=== PATIENT | male | born 1985 | race Caucasian/White ===

== ENCOUNTER 2020-09-23 00:48 | Emergency (ER) | payer MEDICARE, MEDICAID, SELFPAY ==
[2020-09-23 02:08] VITALS: BP 130/79; PULSE 79; RESP 16; TEMP 36.7; O2SAT 98; BMI 26.6
--- NOTE | 2020-09-23 02:24 | ED_ITS ---
HPI - Animal Bite General Chief Complaint: Animal Bite Stated Complaint: TICK BITE Time Seen by Provider: 09/23/20 02:22 Source: patient Mode of arrival: ambulatory Limitations: no limitations History of Present Illness HPI narrative: Patient comes to emergency room complaining of being exposed to a tick. 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 Patient pulled it out, states that he thinks he got the head out, threw it on the ground. Patient denies any fever chills, no s ymptoms, it has been approximately 6 hours since he pulled the tick out. MD complaint: other (Tick bite) Related Data Allergies Allergy/AdvReac Type Severity Reaction Status Date / Time vancomycin [Vancomycin] Allergy Mild FLUSHING, Unverified 02/25/20 16:50 RED FACE, anaphylaxis ibuprofen Allergy Unknown LIP Unverified 02/25/20 16:50 SWELLING Motrin Allergy Unknown Uncoded 03/15/17 00:00 Review of Systems Review of Systems: Constitutional : No Weight loss, No Fever, No Chills, No Night Sweats, No Fatigue, No Malaise ENT/Mouth : No Hearing loss, No Ear Pain, No Nasal Congestion, No Sinus Pain, No Hoarseness, No sore throat, No Rhinorrhea, No Swallowing Difficulty Eyes: No Eye Pain, No Swelling, No Redness, No Foreign Body, No Discharge, No Vision Changes Cardiovascular : No Chest Pain, No SOB, No Dyspnea on Exertion, No Orthopnea, No Edema, No Palpitations Respiratory : No Cough, No Sputum, No Wheezing, No Smoke Exposure, No Dyspnea Gastrointestinal : No Nausea, No Vomiting, No Diarrhea, No Constipation, No abdominal Pain, No Hematochezia, No Melena Genitourinary : no irregular bleeding, No Dysuria, No Urinary Frequency, No Hematuria, No Urinary Incontinence, No Urgency, No Flank Pain, No Urinary Flow Changes, No Hesitancy Musculoskeletal : No joint pain, No Myalgias, No Joint Swelling Skin : Found a tick in his abdomen right lower quadrant Neuro : No Weakness, No Numbness, No Paresthesias, No Loss of Consciousness, No Dizziness, complaining of a mild to moderate Headache at this time Psych : No Anxiety/Panic, No Depression, No SI/HI/AH/VH, No Social Issues, Heme/Lymph: No Bruising, No Bleeding,No Lymphadenopathy Endocrine : No Polyuria, No Polydipsia, No Temperature Intolerance Physical Exam Vital Signs: Vital Signs: Last Vital Signs Temp 98.0 F 09/23/20 02:08 Pulse 79 09/23/20 02:08 Resp 16 09/23/20 02:08 BP 130/79 09/23/20 02:08 Pulse Ox 98 09/23/20 02:08 Body Mass Index 26.6 Appearance: Alert. Oriented X3. No acute distress. Eyes: Pupils equal, round and reactive to light. ENT: Pharynx normal. Neck: Normal inspection. Neck supple. No lymph nodes noted. No crepitus CVS: Normal heart rate and rhythm. Pulses normal. Normal S1 and S2 Respiratory: No respiratory distress. Breath sounds normal. No Wheezing. No rales Abdomen: Soft and nontender. No rigidity. No distention. good BS x4 Skin: Skin warm and dry. 2 mm erythematous dot on the patient's right lower quadrant, no surrounding erythema Extremities: No lower extremity edema. No lower extremity edema. No Laceratio ns. No Rash Neuro: Oriented X 3. No motor deficit. No sensory deficit. Moving all extermities. No slurred speech. Course Course Course Narrative: I discussed with the patient that we will go ahead and give him 1 time dose of 200 mg of doxycycline. Patient instructed to monitor if he has any new symptoms in the next couple of weeks. If he does, patient is to follow-up with his primary care physician. Discharge Plan Discharge Clinical Impression: Tick bite of abdominal wall Patient Disposition: Home, Self-Care Instructions: Tick Bite (ED) Additional Instructions: Over the next 2 weeks, please monitor if you have any symptoms, if you do, please return to the emergency room or call your primary care physician. Please follow-up with your primary care physician tomorrow. If you have any worsening or new symptoms, please return to the emergency room or call 911
[2020-09-23] MEDS: Acetaminophen 325 MG TABLET 650 MG PO (02:37)
== END 2020-09-23 02:48 | disposition home or self-care (01) ==
LOC: HO.ED 02:47
PROVIDERS: Emergency Provider Emergency Medicine; PCP Family Medicine
DX: T63.481A Toxic effect of venom of other arthropod, accidental (unintentional), initial encounter (principal); R10.31 Right lower quadrant pain; Y92.9 Unspecified place or not applicable
CPT/HCPCS: 99283

== ENCOUNTER 2021-10-03 19:18 | Emergency (ER) | payer MEDICARE, MEDICAID, SELFPAY ==
[2021-10-03 19:38] VITALS: BP 122/72; PULSE 83; RESP 17; TEMP 36.4; O2SAT 98; BMI 28.8
[2021-10-03 21:44] VITALS: BP 111/64; PULSE 79; RESP 17; TEMP 36.4; O2SAT 97
[2021-10-03] MEDS: Amoxicillin/Potassium Clav 875 MG TABLET PO (21:46)
[2021-10-03] MEDS: Acetaminophen 325 MG TABLET 975 MG PO (21:46)
--- NOTE | 2021-10-03 21:56 | ED_ITS ---
HPI - General Adult General Chief complaint: Dental/Oral Stated complaint: dental pain Time Seen by Provider: 10/03/21 21:26 Source: patient Mode of arrival: ambulatory Limitations: no limitations History of Present Illness HPI narrative: Rochelle Zelaya presents to ED for left upper tooth pain. Patient states has cracked broken tooth and slight facial swelling. Patient scheduled for extraction of tooth next week. Patient denies any shortness of breath, sensation of throat closing trauma drooling, chest pain, shortness of breath, or neck swelling. Related Data Previous Rx's Medication Instructions Recorded amoxicillin 875 mg-potassium 1 tab PO Q12H 10 Days #20 tab 10/03/21 clavulanate 125 mg tablet Allergies Allergy/AdvReac Type Severity Reaction Status Date / Time vancomycin [Vancomycin] Allergy Mild FLUSHING, Verified 10/03/21 19:40 RED FACE, anaphylaxis ibuprofen Allergy Unknown LIP Verified 10/03/21 19:40 SWELLING Motrin Allergy Unknown Unknown Uncoded 10/03/21 19:40 Review of Systems Review of Systems: Left upper molar pain Yes all other systems are reviewed and are negative PMFSH Social History Social History Advance Directives: No Advance Directives Information Provided: Yes Physical Exam ED Vital Signs: Vital Signs - 24 hr 10/03/21 19:38 10/03/21 21:44 Temperature 97.6 F 97.5 F Pulse Rate 83 79 Respiratory Rate 17 17 Blood Pressure 122/72 111/64 Pulse Oximetry 98 97 BMI result Body Mass Index 28.8 Const General: cooperative, healthy appearing, comfortable, no acute distress, well developed, alert, awake and Physically active Orientation/consciousness: oriented to person, oriented to place, oriented to time and patient oriented x3 HENMT Other: Negative for facial swelling or mass on palpation of face. Head: Yes normal to inspection, Yes No palpable skull fracture present, Yes normocephalic, Yes atraumatic and No abrasion Teeth image: 1. Positive for yellow collection and tenderness on palpation. Negative for any gum swelling, redness, drooling, trismus, or gum abscess Eyes General: appearance normal, both eyes and all related structures Neck Neck: Yes normal visual inspection, Yes full ROM, Yes no lymphadenopathy, Yes no meningeal signs, Yes trachea midline, Yes supple, No anterior neck swelling and No tender Chest Chest palpation & inspection: normal inspection of the chest and normal palpation of entire chest wall Resp Effort & Inspection: normal respiratory effort and able to speak in complete sentences Auscultation: clear to auscultation bilaterally Cardio Jugular venous distension: no JVD Heart sounds: S1 normal heart sound present and S2 normal heart sound present GI Inspection: Yes normal to inspection and No abdominal wall ecchymosis Palpation (GI): Soft to palpation, not firm, nontender, no guarding and not rigid General: No CVA tenderness and Yes no CVA tenderness Back/Spine/Pelvis Back: no CVA tenderness, No CVA tenderness and No back tenderness Skin General skin exam: no rashes or lesions noted and elasticity normal Neuro General: oriented to person, oriented to place, oriented to time, patient oriented x3, gait normal, tone normal, moves all extremities, no meningeal signs, no focal motor deficits, CN's II-XI intact bilaterally and deep tendon reflexes 2+ bilaterally Extrem General: Yes normal to inspection and Yes full ROM Psych Appearance: grossly normal, well kempt and not disheveled Course Course Course Narrative: No imaging indicated. Negative for any neck swelling, drooling, change in voice, or facial swelling. Reevaluation(s) Reevaluation #1: Broken tooth with slight yellow collection. Will need antibiotics Time: 22:08 Medical Decision Making MDM Narrative Medical decision making narrative: Toothache. Dental infection Discharge Plan Discharge Clinical Impression: Toothache Patient Disposition: Home, Self-Care Instructions: Toothache (ED) Additional Instructions: You will need antibiotics to treat infection. Please follow-up with a dentist for teeth extraction after antibiotic course is done. Return To the ED immediately for facial swelling, neck swelling, drooling, shortness of breath, chest pain, change in voice, or any other concerning symptoms. Prescriptions: New amoxicillin-pot clavulanate 875-125 mg tablet 1 tab PO Q12H 10 Days Qty: 20 0RF Stand Alone Forms: Work/School Release Interventions: ED Discharge Assessment Last Done: 10/03/21 22:40 Discharge Date/Time: 10/03/21 22:40 Print Language: Lithuanian
== END 2021-10-03 22:40 | disposition home or self-care (01) ==
PROVIDERS: Emergency Provider Internal Medicine; PCP Family Medicine
DX: K08.89 Other specified disorders of teeth and supporting structures (principal)
CPT/HCPCS: 99283; 99284

== ENCOUNTER 2022-03-29 00:25 | Emergency (ER) | payer MEDICARE, MEDICAID, SELFPAY ==
[2022-03-29 00:51] VITALS: BP 134/77; PULSE 98; RESP 20; TEMP 36.7; O2SAT 96; BMI 25.7
[2022-03-29 02:00] VITALS: BP 126/72; PULSE 83; TEMP 36.8; O2SAT 95
[2022-03-29] MEDS: Acetaminophen 325 MG TABLET 650 MG PO (02:32)
[2022-03-29] MEDS: Amoxicillin/Potassium Clav 875 MG TABLET PO (02:32)
--- NOTE | 2022-03-29 02:41 | ED.DENTAL ---
HPI - Dental/Oral General Chief complaint: Dental/Oral Stated complaint: Dental pain/broken tooth Time Seen by Provider: 03/29/22 02:16 Source: patient Mode of arrival: ambulatory Limitations: no limitations History of Present Illness HPI Narrative: Patient with history of dental caries chronic been to dentist has taken antibiotics has an appointment to see dentist in a week time complaining of pain and cold sensitivity in the right 2nd upper molar Related Data Previous Rx's Medication Instructions Recorded amoxicillin 875 mg-potassium 1 tab PO Q12H 10 days #20 tabs 10/03/21 clavulanate 125 mg tablet amoxicillin 875 mg-potassium 1 tab PO BID #20 tabs 03/29/22 clavulanate 125 mg tablet Allergies Allergy/AdvReac Type Severity Reaction Status Date / Time vancomycin [Vancomycin] Allergy Mild FLUSHING, Verified 10/03/21 19:40 RED FACE, anaphylaxis ibuprofen Allergy Unknown LIP Verified 10/03/21 19:40 SWELLING Motrin Allergy Unknown Unknown Uncoded 10/03/21 19:40 Review of Systems Review of Systems: Yes all other systems are reviewed and are negative [facility] Social History Social History Advance Directives: No Physical Exam Vital Signs: Vital Signs: Last Vital Signs Temp 98.3 F 03/29/22 02:00 Pulse 83 03/29/22 02:00 Resp 20 03/29/22 00:51 BP 126/72 03/29/22 02:00 Pulse Ox 95 03/29/22 02:00 O2 Del Method 03/29/22 02:00 BMI result Body Mass Index 25.7 Appearance: Alert. Oriented X3. No acute distress. ENT: Pharynx normal. Oral Mucosa moist Neck: Normal inspection. Neck supple. CVS: Normal heart rate and rhythm. Respiratory: No respiratory distress. Neuro: Oriented X 3. HEENT: Teeth image: 1. Dental caries, tender to touch no gum swelling Discharge Plan Discharge Clinical Impression: Dental caries Patient Disposition: Home, Self-Care Instructions: Toothache (ED) Additional Instructions: Tylenol for pain take antibiotics and follow-up with their dentist Prescriptions: New amoxicillin-pot clavulanate 875-125 mg tablet 1 tab PO BID Qty: 20 0RF No Action amoxicillin-pot clavulanate 875-125 mg tablet 1 tab PO Q12H 10 Days Qty: 20 0RF
== END 2022-03-29 02:47 | disposition home or self-care (01) ==
PROVIDERS: Emergency Provider Internal Medicine; PCP Family Medicine
DX: K02.9 Dental caries, unspecified (principal)
CPT/HCPCS: 99283

== ENCOUNTER 2022-09-19 00:24 | Emergency (ER) | payer MEDICARE, MEDICAID, SELFPAY ==
--- NOTE | 2022-09-19 | ECG_ITS ---
Test Reason : chest pain Blood Pressure : / mmHG Vent. Rate : 072 BPM Atrial Rate : 072 BPM P-R Int : 136 ms QRS Dur : 088 ms QT Int : 356 ms P-R-T Axes : 018 011 016 degrees QTc Int : 389 ms Normal sinus rhythm Normal ECG When compared with ECG of 01-OCT-2016 15:52, No significant change was found Referred By: Generic ED Physician Electronically Signed By:ABDI GUILLEN MD
[2022-09-19 00:31] VITALS: BP 90/60; PULSE 84; O2SAT 100
[2022-09-19 00:32] VITALS: BMI 26.6
[2022-09-19 00:34] VITALS: BP 114/60; PULSE 74; RESP 14; TEMP 36.6; O2SAT 99
[2022-09-19 00:52] LABS: MANUAL DIFF FLAG NO
[2022-09-19 00:53] LABS: Basophils Percent Auto 0.5 % (0-2); Eosinophils Absolute Auto 0.5 X10*3/uL (0.0-0.4); Eosinophils Percent Auto 6.2 % (0-4); Hematocrit 34.1 % (42.0-52.0); Hemoglobin 11.4 g/dl (14.0-18.0); Imm Gran Abs Auto 0.02 X10*3/uL (0.00-0.03); Imm Gran Pct Auto 0.3 % (0.0-0.4); Lymphocytes Absolute Auto 3.9 X10*3/uL (1.2-4.9); Lymphocytes Percent Auto 52.8 % (20-40); Mean Corpuscular HGB Conc 33.4 g/dl (31.0-36.0); Mean Corpuscular Hemoglobin 32.1 pg (27.0-33.0); Mean Corpuscular Volume 96.1 fL (80.0-98.0); Mean Platelet Volume 8.7 fL (9.4-12.4); Monocytes Absolute Auto 0.4 X10*3/uL (0.1-1.2); Monocytes Percent Auto 5.9 % (2-11); Neutrophils Absolute Auto 2.6 x10*3/uL (2.0-8.3); Neutrophils Percent Auto 34.3 % (45-73); Platelet Count 240 X10*3/uL (160-400); Red Blood Count 3.55 X10*6/uL (4.60-5.80); Red Cell Distribution Width 12.4 % (11.0-16.0); White Blood Count 7.4 X10*3/uL (4.8-10.8)
--- NOTE | 2022-09-19 00:57 | ED_ITS ---
HPI - Chest Pain General Chief Complaint: Chest Pain Stated Complaint: chest pain Time Seen by Provider: 09/19/22 00:56 Source: patient Mode of arrival: EMS Limitations: no limitations History of Present Illness HPI narrative: Patient history of cocaine use for long time today patient used cocaine within half an hour of cocaine use noticed pain in the left chest patient also does have history of anxiety and panic attack but does not feel like same at this time pain is sharp localized to left side continues for last 1 hour no diaphoresis no nausea no vomiting no shortness of breath no cough patient received 324 mg aspirin by EMS Related Data Previous Rx's Medication Instructions Recorded amoxicillin 875 mg-potassium 1 tab PO Q12H 10 days #20 tabs 10/03/21 clavulanate 125 mg tablet amoxicillin 875 mg-potassium 1 tab PO BID #20 tabs 03/29/22 clavulanate 125 mg tablet Allergies Allergy/AdvReac Type Severity Reaction Status Date / Time vancomycin [Vancomycin] Allergy Mild FLUSHING, Verified 10/03/21 19:40 RED FACE, anaphylaxis ibuprofen Allergy Unknown LIP Verified 10/03/21 19:40 SWELLING Motrin Allergy Unknown Unknown Uncoded 10/03/21 19:40 Review of Systems Review of Systems: Yes all other systems are reviewed and are negative PMFSH Social History Social History Smoked in Last 30 Days: No Use of substances other than those prescribed or required for medical reasons: Yes Substance Use Type: Crack/Cocaine and Marijuana Substance Use Frequency: Daily Last Used Substance: Just Prior to Admission Any prior treatment program specific to substance use: No Advance Directives: No Advance Directives Information Provided: Yes Physical Exam Vital Signs: Vital Signs: Last Vital Signs Temp 98.0 F 09/19/22 04:02 Pulse 77 09/19/22 04:02 Resp 13 09/19/22 04:02 BP 111/73 09/19/22 04:02 Pulse Ox 96 09/19/22 04:02 O2 Del Method Room Air 09/19/22 04:02 BMI result Body Mass Index 26.6 Appearance: Alert. Oriented X3. No acute distress. Anxious ENT: Pharynx normal. Oral Mucosa moist Neck: Normal inspection. Neck supple. CVS: Normal heart rate and rhythm. Pulses normal. Respiratory: No respiratory distress. Equal air entry bilateral, no wheezing/rales/rhonchi Abdomen: Soft and nontender. Bowel sounds are present, no mass palpable, no CVA tenderness Skin: Skin warm and dry. Normal skin color. Normal skin turgor. Extremities: No lower extremity edema. No calf tenderness Neuro: Oriented X 3. No motor deficit. No sensory deficit.No cerebellar signs , cranial nerves II-XII intact Medications Administered Discontinued Medications Generic Name Dose Route Start Last Admin Trade Name Freq PRN Reason Stop Dose Admin Sodium Chloride 1,000 mls @ 999 mls/hr 09/19/22 01:02 09/19/22 02:35 Ns IV 09/19/22 02:02 Infused .Q1H1M ONE Infusion Lorazepam 1 mg 09/19/22 01:02 09/19/22 01:16 Lorazepam 2 Mg/Ml Vial IVPUSH 09/19/22 01:03 1 mg ONCE ONE Administration Medical Decision Making Medical Decision Making [facility] Narrative: Patient heart score of 0 atypical chest pain with cocaine use no EKG changes high sensitive troponin negative discharge patient home patient is sleeping since arrival Lab Data [facility] Lab Attestation statement: I reviewed the patient's lab results. 09/19/22 00:42 09/19/22 00:42 Labs: Lab Results 09/19/22 09/19/22 09/19/22 Range/Units 00:42 00:42 03:59 WBC 7.4 (4.8-10.8) X10*3/uL RBC 3.55 L (4.60-5.80) X10*6/uL Hgb 11.4 L (14.0-18.0) g/dl Hct 34.1 L (42.0-52.0) % MCV 96.1 (80.0-98.0) fL MCH 32.1 (27.0-33.0) pg MCHC 33.4 (31.0-36.0) g/dl RDW 12.4 (11.0-16.0) % Plt Count 240 (160-400) X10*3/uL MPV 8.7 L (9.4-12.4) fL Immature Gran % (Auto) 0.3 (0.0-0.4) % Neut % (Auto) 34.3 L (45-73) % Lymph % (Auto) 52.8 H (20-40) % Wilson % (Auto) 5.9 (2-11) % Eos % (Auto) 6.2 H (0-4) % Baso % (Auto) 0.5 (0-2) % Lymph # (Auto) 3.9 (1.2-4.9) X10*3/uL Wilson # (Auto) 0.4 (0.1-1.2) X10*3/uL Eos # (Auto) 0.5 H (0.0-0.4) X10*3/uL Baso # (Auto) 0.0 (0.0-0.2) X10*3/uL Abs Immat Gran (auto) 0.02 (0.00-0.03) X10*3/uL Absolute Neuts (auto) 2.6 (2.0-8.3) x10*3/uL Absolute Nucleated RBC 0.000 (0.0-0.012) X10*3/uL Nucleated RBC % (auto) 0.0 (0.0-0.2) /100WBC Sodium 139 (135-145) mmol/L Potassium 3.9 (3.3-5.1) mmol/L Chloride 105 (96-108) mmol/L Carbon Dioxide 28 (22-29) mmol/L Anion Gap 10 L (12-20) BUN 19 H (9-16) mg/dL Creatinine 1.09 (0.5-1.4) mg/dL Estim Creat Clear Calc 90.6 Estimated GFR > 60 Random Glucose 149 H (60-115) mg/dL Calcium 8.5 (8.4-10.2) mg/dL Total Bilirubin 0.3 (0.0-1.0) mg/dL AST 24 (5-37) U/L ALT 24 (0-40) U/L Alkaline Phosphatase 68 (39-117) U/L Troponin I High Sens < 2.7 (<3.5-35.0) ng/L Total Protein 6.9 (6.5-8.0) g/dL Albumin 3.7 (3.5-5.0) g/dL Independent Interpretation I performed an independent interpretation of an: EKG Interpretation: Normal sinus rhythm heart rate 72 beats per minute normal interval normal axis no acute ST-T changes no acute ischemia Scores Heart Score History: -0- slightly suspicious ECG: -0- normal Age: -0- < or = 45 Risk factory: -0- no risk factors known Troponin: -0- < or = normal limit Score: 0 Risk: 1.7% Discharge Plan Discharge Clinical Impression: Chest pain, Cocaine abuse Patient Disposition: Home, Self-Care Instructions: Chest Pain (ED), Cocaine Abuse (ED) Additional Instructions: Stop using cocaine Report to the ER if recurrence of chest pain Prescriptions: No Action amoxicillin-pot clavulanate 875-125 mg tablet 1 tab PO Q12H 10 Days Qty: 20 0RF amoxicillin-pot clavulanate 875-125 mg tablet 1 tab PO BID Qty: 20 0RF
[2022-09-19 01:05] LABS: Alanine Aminotransferase 24 U/L (0-40); Albumin Level 3.7 g/dL (3.5-5.0); Alkaline Phosphatase 68 U/L (39-117); Anion Gap 10 (12-20); Aspartate Amino Transferase 24 U/L (5-37); Bilirubin Total 0.3 mg/dL (0.0-1.0); Blood Urea Nitrogen 19 mg/dL (9-16); Calcium 8.5 mg/dL (8.4-10.2); Carbon Dioxide 28 mmol/L (22-29); Chloride 105 mmol/L (96-108); Creatinine Clr Calc Pharmacy 90.6; Estimated Glomerular Filt Rate > 60; Glucose Random 149 mg/dL (60-115); Potassium 3.9 mmol/L (3.3-5.1); Sodium 139 mmol/L (135-145); Total Protein 6.9 g/dL (6.5-8.0)
[2022-09-19] MEDS: LORazepam 2 MG/ML VIAL 1 MG IVPUSH (01:16)
[2022-09-19] MEDS: 0.9 % Sodium Chloride 1,000 ML 999 ML IV (01:16)
[2022-09-19 02:00] VITALS: BP 101/53; PULSE 70; RESP 14; O2SAT 97
[2022-09-19 04:02] VITALS: BP 111/73; PULSE 77; RESP 13; TEMP 36.7; O2SAT 96
[2022-09-19 04:32] LABS: Troponin-I High Sensitivity < 2.7 ng/L (<3.5-35.0)
== END 2022-09-19 06:36 | disposition home or self-care (01) ==
PROVIDERS: Emergency Provider Internal Medicine; PCP Family Medicine
DX: R07.9 Chest pain, unspecified (principal); F14.10 Cocaine abuse, uncomplicated
CPT/HCPCS: 36415; 80053; 84484; 85025; 93005; 96360; 99284; 99285; J2060

== ENCOUNTER 2023-03-04 17:59 | Emergency (ER) | payer MEDICARE, MEDICAID, SELFPAY ==
--- NOTE | ~2023-03-04 | XR_ITS ---
EXAMINATION: XR CHEST CLINICAL INFORMATION: Chest pain. COMPARISON: 04/10/2012. TECHNIQUE: 2 views of the chest were obtained. FINDINGS: The cardiomediastinal silhouette is normal. There is no focal lung consolidation or pleural effusion. The bony structures and soft tissues are unremarkable. XR/XR chest 2V IMPRESSION: No active cardiopulmonary disease.
--- NOTE | 2023-03-04 18:05 | ECG_ITS ---
Test Reason : CHEST PAIN Blood Pressure : / mmHG Vent. Rate : 079 BPM Atrial Rate : 079 BPM P-R Int : 124 ms QRS Dur : 092 ms QT Int : 348 ms P-R-T Axes : 017 005 017 degrees QTc Int : 399 ms Normal sinus rhythm Normal ECG When compared with ECG of 19-SEP-2022 00:32, No significant change was found Referred By: Generic ED Physician Electronically Signed By:CHANTEL OLIVARES
[2023-03-04 18:51] VITALS: BP 107/68; PULSE 85; RESP 16; TEMP 37; O2SAT 97; BMI 25.5
--- NOTE | 2023-03-04 18:52 | ED_ITS ---
HPI - General Adult General Chief complaint: Anxiety Stated complaint: anxiety,chest feels tight Time Seen by Provider: 03/04/23 22:20 Source: patient and old records reviewed Mode of arrival: ambulatory Limitations: no limitations History of Present Illness HPI narrative: 37 yo male with PMH of anxiety that results in panic attacks and chest pain - hx of same. He reports he was driving to his work site today [place] and his co-workers started talking about paranormal activity and it started to freak him out. He started to have anxiety and tried to take his xanax which did not help. He then got L armpit pain and he became more scared. He has had this multiple times before. He has no SI/HI. He has not traveled recently or had a procedure. no hx of CAD. MD complaint: panic attack Onset (ago): hour(s) (several) Location: chest Radiation: extremity Severity: moderate Quality: dull and constant Pain Consistency: intermittent Relieving factors: none Exacerbating factors: other (stress) Associated symptoms: other (acute anxiety) Treatments prior to arrival: other (xanax) Related Data Previous Rx's Medication Instructions Recorded amoxicillin 875 mg-potassium 1 tab PO Q12H 10 days #20 tabs 10/03/21 clavulanate 125 mg tablet amoxicillin 875 mg-potassium 1 tab PO BID #20 tabs 03/29/22 clavulanate 125 mg tablet Allergies Allergy/AdvReac Type Severity Reaction Status Date / Time vancomycin [Vancomycin] Allergy Mild FLUSHING, Verified 03/04/23 18:54 RED FACE, anaphylaxis ibuprofen Allergy Unknown LIP Verified 03/04/23 18:54 SWELLING Motrin Allergy Unknown Unknown Uncoded 10/03/21 19:40 Review of Systems 2 Review of Systems: Constitutional : No Weight loss, No Fever, No Chills ENT/Mouth : No sore throat, No Rhinorrhea Eyes: No Eye Pain, No Swelling Cardiovascular : pos Chest Pain, pos SOB, no Dyspnea on Exertion, No Orthopnea, No Edema, No Palpitations Respiratory : No Cough, No Sputum Gastrointestinal : pos Nausea, No Vomiting, No Diarrhea, No abdominal Pain, No Hematochezia, No Melena Genitourinary : No Dysuria, No Urinary Frequency Musculoskeletal : No joint pain, No Myalgias, No Joint Swelling Skin : No Skin Lesions, No rash Neuro : No Weakness, No Numbness, No Dizziness, No Headache Psych : pos Anxiety/Panic, No Depression All other systems reviewed and are negative [facility] Past Medical History Attestation statement: The following information was validated with the patient. Medical History Panic attacks Social History Social History (Updated 03/04/23 @ 22:46 by Merly Sanders DO) Patient Tobacco Use Status: Former Tobacco user Substance Use Type: Crack/Cocaine and Marijuana Physical Exam ED Vital Signs: Vital Signs - 24 hr 03/04/23 18:51 03/04/23 22:16 Temperature 98.6 F 97.6 F Pulse Rate 85 68 Respiratory Rate 16 18 Blood Pressure 107/68 110/66 Pulse Oximetry 97 99 Oxygen Delivery Method Room Air Room Air BMI result Body Mass Index 25.5 Appearance: Alert. Oriented X3. No acute distress. Eyes: Pupils equal, round and reactive to light. ENT: Pharynx normal. Neck: Normal inspection. Neck supple. CVS: Normal heart rate and rhythm. Pulses normal. Respiratory: No respiratory distress. Breath sounds normal. Abdomen: Soft and nontender. Skin: Skin warm and dry. Normal skin color. Normal skin turgor. Extremities: No lower extremity edema. No calf ttp Neuro: Oriented X 3. No motor deficit. No sensory deficit. Course Course Course Narrative: RME performed by Christina Burdick PA-C. Patient is a 37 year old assigned male at presenting to the emergency department with chest pain and possible anxiety attack. Labs and imaging ordered. Patient placed back in the waiting room pending room availability and results. Medical Decision Making Medical Decision Making MDM Narrative: 37 yo male with PMH of anxiety that results in panic attacks and chest pain here with c/o resolved chest pain after [place] and talking about paranormal activity - he is PERC negative, feeling much better, has hx of same in past, no cocaine in 7+ days doubt vasospams VS stable, EKG negative, distal pulses intact doubt dissection. He is not toxic. He will be given additional xanax and DC home. No preceding illness to suggest willy or pericarditis. Differential Diagnosis Differential Diagnoses: The differential diagnosis associated with the presentation includes anxiety, atypical chest pain, PERC negative doubt ACS or spasm - has not used cocaine in over 7 days Admission/Observation Consideration of admission/observation: Escalation of care including admission/observation considered feels better now related to paranormal activity not exertion doubt ACS, PERC negative Lab Data MDM Lab Attestation statement: I reviewed the patient's lab results. 03/04/23 19:50 03/04/23 19:50 Labs: Lab Results 03/04/23 Range/Units 19:50 WBC 8.2 (4.8-10.8) X10*3/uL RBC 3.76 L (4.60-5.80) X10*6/uL Hgb 11.9 L (14.0-18.0) g/dl Hct 35.7 L (42.0-52.0) % MCV 94.9 (80.0-98.0) fL MCH 31.6 (27.0-33.0) pg MCHC 33.3 (31.0-36.0) g/dl RDW 12.1 (11.0-16.0) % Plt Count 255 (160-400) X10*3/uL MPV 8.8 L (9.4-12.4) fL Immature Gran % (Auto) 0.2 (0.0-0.4) % Neut % (Auto) 36.2 L (45-73) % Lymph % (Auto) 45.3 H (20-40) % [place] % (Auto) 8.2 (2-11) % Eos % (Auto) 9.0 H (0-4) % Baso % (Auto) 1.1 (0-2) % Lymph # (Auto) 3.7 (1.2-4.9) X10*3/uL [place] # (Auto) 0.7 (0.1-1.2) X10*3/uL Eos # (Auto) 0.7 H (0.0-0.4) X10*3/uL Baso # (Auto) 0.1 (0.0-0.2) X10*3/uL Abs Immat Gran (auto) 0.02 (0.00-0.03) X10*3/uL Absolute Neuts (auto) 3.0 (2.0-8.3) x10*3/uL Absolute Nucleated RBC 0.000 (0.0-0.012) X10*3/uL Nucleated RBC % (auto) 0.0 (0.0-0.2) /100WBC Sodium 142 (135-145) mmol/L Potassium 3.8 (3.3-5.1) mmol/L Chloride 108 (96-108) mmol/L Carbon Dioxide 24 (22-29) mmol/L Anion Gap 14 (12-20) BUN 13 (9-16) mg/dL Creatinine 1.02 (0.5-1.4) mg/dL Estim Creat Clear Calc 103.3 Estimated GFR > 60 Random Glucose 107 (60-115) mg/dL Calcium 9.0 (8.4-10.2) mg/dL Magnesium 2.2 (1.6-2.6) mg/dL Total Bilirubin 0.3 (0.0-1.0) mg/dL AST 17 (5-37) U/L ALT 12 (0-40) U/L Alkaline Phosphatase 78 (39-117) U/L Total Protein 7.5 (6.5-8.0) g/dL Albumin 3.8 (3.5-5.0) g/dL Influenza Type A (PCR) NEGATIVE (Negative) Influenza Type B (PCR) NEGATIVE (Negative) RSV RNA Qual (PCR) NEGATIVE (Negative) SARS-CoV-2 RNA (RT-PCR) NEGATIVE (Negative) Independent Interpretation I performed an independent interpretation of an: EKG and Plain X-Ray Interpretation: Rate: 79 Rhythm: NSR [place]: normal Normal P waves. Normal ADOLFO. Normal QRS complex. ST T wave : no IGLESIA, inverted t wave III qTC: normal prior studies: no acute ischemia The study has been interpreted contemporaneously by me. . External Record Review External record reviewed: Inpatient record Prescription Management I considered prescription management with: Other (has xanax at home) Discharge Plan Discharge Clinical Impression: Acute anxiety, Atypical chest pain Patient Disposition: Home, Self-Care Instructions: Chest Pain (ED), Anxiety (ED) Additional Instructions: take your medications as prescribed. return for worsening symptoms or concerns. follow up with your doctor as needed. take your medications as prescribed. follow up with a therapist as scheduled. Prescriptions: No Action amoxicillin-pot clavulanate 875-125 mg tablet 1 tab PO Q12H 10 Days Qty: 20 0RF amoxicillin-pot clavulanate 875-125 mg tablet 1 tab PO BID Qty: 20 0RF
[2023-03-04 19:55] LABS: MANUAL DIFF FLAG NO
[2023-03-04 19:56] LABS: Basophils Absolute Auto 0.1 X10*3/uL (0.0-0.2); Basophils Percent Auto 1.1 % (0-2); Eosinophils Absolute Auto 0.7 X10*3/uL (0.0-0.4); Hematocrit 35.7 % (42.0-52.0); Hemoglobin 11.9 g/dl (14.0-18.0); Imm Gran Abs Auto 0.02 X10*3/uL (0.00-0.03); Imm Gran Pct Auto 0.2 % (0.0-0.4); Lymphocytes Absolute Auto 3.7 X10*3/uL (1.2-4.9); Lymphocytes Percent Auto 45.3 % (20-40); Mean Corpuscular HGB Conc 33.3 g/dl (31.0-36.0); Mean Corpuscular Hemoglobin 31.6 pg (27.0-33.0); Mean Corpuscular Volume 94.9 fL (80.0-98.0); Mean Platelet Volume 8.8 fL (9.4-12.4); Monocytes Absolute Auto 0.7 X10*3/uL (0.1-1.2); Monocytes Percent Auto 8.2 % (2-11); Neutrophils Percent Auto 36.2 % (45-73); Platelet Count 255 X10*3/uL (160-400); Red Blood Count 3.76 X10*6/uL (4.60-5.80); Red Cell Distribution Width 12.1 % (11.0-16.0); White Blood Count 8.2 X10*3/uL (4.8-10.8)
[2023-03-04 20:10] LABS: Alanine Aminotransferase 12 U/L (0-40); Albumin Level 3.8 g/dL (3.5-5.0); Alkaline Phosphatase 78 U/L (39-117); Anion Gap 14 (12-20); Aspartate Amino Transferase 17 U/L (5-37); Bilirubin Total 0.3 mg/dL (0.0-1.0); Blood Urea Nitrogen 13 mg/dL (9-16); Carbon Dioxide 24 mmol/L (22-29); Chloride 108 mmol/L (96-108); Creatinine Clr Calc Pharmacy 103.3; Estimated Glomerular Filt Rate > 60; Glucose Random 107 mg/dL (60-115); Magnesium 2.2 mg/dL (1.6-2.6); Potassium 3.8 mmol/L (3.3-5.1); Sodium 142 mmol/L (135-145); Total Protein 7.5 g/dL (6.5-8.0)
[2023-03-04 20:33] LABS: Influenza A PCR NEGATIVE (Negative); Influenza B PCR NEGATIVE (Negative); Resp Syncy Virus RNA Qual PCR NEGATIVE (Negative); SARS COV2 PCR INHOUSE NEGATIVE (Negative)
[2023-03-04 22:16] VITALS: BP 110/66; PULSE 68; RESP 18; TEMP 36.4; O2SAT 99
[2023-03-04] MEDS: ALPRAZolam 0.5 MG TABLET PO (22:48)
== END 2023-03-04 22:50 | disposition home or self-care (01) ==
PROVIDERS: Physician Assistant Medical; Emergency Provider Emergency Medicine; PCP Family Medicine
DX: F41.9 Anxiety disorder, unspecified (principal); R07.89 Other chest pain; Z20.822 Contact with and (suspected) exposure to COVID-19; Z20.828 Contact with and (suspected) exposure to other viral communicable diseases
CPT/HCPCS: 0241U; 71046; 80053; 83735; 85025; 93005; 99283; 99284

== ENCOUNTER 2024-01-07 10:54 | Emergency (ER) | payer MEDICARE, MEDICAID, SELFPAY ==
[2024-01-07 11:04] VITALS: BP 119/78; PULSE 88; O2SAT 99
[2024-01-07 11:05] VITALS: BP 137/81; PULSE 76; RESP 15; TEMP 36.3; O2SAT 99
[2024-01-07 11:09] VITALS: BMI 28.9
--- NOTE | 2024-01-07 12:59 | ED.GENADULT ---
HPI - General Adult General Chief complaint: Allergic Reaction Stated complaint: FOOT PAIN S/P INSECT BITE,FROM [facility] Time Seen by Provider: 01/07/24 11:08 Source: patient, EMS and RN notes reviewed Mode of arrival: EMS Limitations: no limitations History of Present Illness ED Provider: Juliet Ball PA-C HPI narrative: This is a 38-year-old male, with a history of anxiety and asthma, who presents emergency department with complaints of insect bite to left ankle which occurred today. Patient states that while [place] was [place] when he felt a insect bite him in his left ankle. He is unsure what this was, unsure if it is a spider or a hornet. He states that he had exquisite pain to the area and went to an urgent care. While he was at the urgent care and ambulance was called. In route he was given Benadryl, Pepcid, and and prednisone 60 mg p.o.. He states that he is feeling much better. He did not have any chest pain or shortness of breath. No difficulty swallowing or breathing. He is unsure when his last tetanus was. No other complaints or concerns at this time. MD complaint: Insect bite, left ankle Onset (ago): day(s) Location: lower extremity Radiation: extremity Severity: moderate Quality: stabbing Pain Consistency: constant Relieving factors: none Exacerbating factors: none Associated symptoms: denies other symptoms Treatments prior to arrival: none Related Data Previous Rx's ?Medication ?Instructions ?Recorded amoxicillin 875 mg-potassium 1 tab PO Q12H 10 days #20 tabs 10/03/21 clavulanate 125 mg tablet amoxicillin 875 mg-potassium 1 tab PO BID #20 tabs 03/29/22 clavulanate 125 mg tablet Allergies Allergy/AdvReac Type Severity Reaction Status Date / Time vancomycin [Vancomycin] Allergy Mild FLUSHING, Verified 01/07/24 11:09 RED FACE, anaphylaxis ibuprofen Allergy Unknown LIP Verified 01/07/24 11:09 SWELLING Motrin Allergy Unknown Unknown Uncoded 01/07/24 11:09 Review of Systems Review of Systems: Yes all other systems are reviewed and are negative Constitutional: Constitutional: Reports as per [facility] Past Medical History Medical History Panic attacks Social History Social History (Updated 03/04/23 @ 22:46 by Merly Sanders DO) Patient Tobacco Use Status: Former Tobacco user Substance Use Type: Crack/Cocaine and Marijuana Advance Directives: No Physical Exam ED Vital Signs: Vital Signs - 24 hr 01/07/24 11:05 Temperature 97.3 F Pulse Rate 76 Respiratory Rate 15 Blood Pressure 137/81 Pulse Oximetry 99 Oxygen Delivery Method Room Air BMI result Body Mass Index 28.9 Const General: cooperative, comfortable and no acute distress Orientation/consciousness: patient oriented x3 Limitations: no limitations HENMT Head: Yes normal to inspection, Yes normocephalic and Yes atraumatic Ears: hearing grossly normal bilaterally General nose exam: Normal external nose present Face and sinus: Yes normal facial exam Mouth: Normal oral and palatal mucosa present, oropharynx normal and moist mucous membranes Throat: Yes posterior oropharynx normal Eyes General: appearance normal, both eyes and all related structures Eyelids: Yes eyelids normal Conjunctivae: conjunctivae normal Sclerae: sclerae normal Pupils: Equal, round and reactive pupils present EOM: EOMs intact bilaterally Neck Neck: Yes normal visual inspection, Yes full ROM and Yes no lymphadenopathy Lymphatic: no lymphadenopathy noted Chest Chest palpation & inspection: normal inspection of the chest Resp Effort & Inspection: normal respiratory effort and able to speak in complete sentences Auscultation: clear to auscultation bilaterally, no crackles, no rales, no rhonchi and no wheezes Cardio Rate: regular rate Rhythm: regular rhythm Heart sounds: S1 normal heart sound present and S2 normal heart sound present GI Inspection: Yes normal to inspection Skin Other: Left ankle, medial malleolus, there is a punctate superficial abrasion noted, consistent with insect bite or sting, no surrounding erythema or warmth. No edema. Full range of motion of the ankle joint without difficulty. Strong DP pulse. Sensation intact. General skin exam: no rashes or lesions noted Trauma: no lacerations or abrasions Wounds: no wounds Neuro General: patient oriented x3 and moves all extremities Cranial nerves: Yes Equal, round and reactive pupils present Extrem General: Yes normal to inspection Right upper extremity: normal to inspection Left upper extremity: normal to inspection Right lower extremity: normal to inspection Left lower extremity: normal to inspection Medical Decision Making Medical Decision Making MDM Narrative: This is a 38-year-old male, with a history of anxiety, and asthma, who presents emergency department with complaints of left ankle pain status post insect bite which occurred just prior to arrival. He was seen in an urgent care and EMS was called, where they administered Benadryl, Pepcid, and prednisone 60 mg. He is feeling much better. On arrival, he is alert and oriented, under no acute distress. He had no difficulty breathing, chest tightness or chest pain. He states that his only pain was in his ankle. Lungs are clear to auscultation bilaterally, airway is widely patent. Patient was monitored for approximately 3 hours in the department, he is feeling much better and would like to be discharged. He was given strict return precautions. Ankle was reexamined, no increased edema or erythema noted. Updated tetanus in department today. Patient stable for discharge. Differential Diagnosis Differential Diagnoses: The differential diagnosis associated with the presentation includes Anaphylaxis-unlikely, insect bite, cellulitis Discharge Plan Discharge Clinical Impression: Insect bite Qualifiers: Encounter type: initial encounter Site of insect bite: foot Patient Disposition: Home, Self-Care Instructions: Insect Bite or Sting (ED) Additional Instructions: You were seen in the emergency department after being bit by an unknown insect. You were given medications by the ambulance, and you were feeling well. Please continue to monitor your symptoms, please return if you develop any chest pain, shortness for breath, increased redness or swelling to the bite. Follow-up with your PCP. If any new or worsening symptoms occur including but not limited to the above symptoms please return. We updated your tetanus shot in the department today. Prescriptions: No Action amoxicillin-pot clavulanate 875-125 mg tablet 1 tab PO Q12H 10 Days Qty: 20 0RF amoxicillin-pot clavulanate 875-125 mg tablet 1 tab PO BID Qty: 20 0RF Stand Alone Forms: Work/School Release Print Language: Serbian
--- NOTE | 2024-01-07 12:59 | PC.NURSE ---
Patient reports feeling better, requesting discharge home , provider aware
[2024-01-07] MEDS: Diphth,Pertus(ACell),Tet Adult 0.5 ML SYRINGE IM (13:23)
[2024-01-07 13:24] VITALS: BP 137/81; PULSE 76; RESP 18; TEMP 36.3
== END 2024-01-07 13:24 | disposition home or self-care (01) ==
PROVIDERS: Emergency Provider Emergency Medicine; PCP Family Medicine
DX: S90.562A Insect bite (nonvenomous), left ankle, initial encounter (principal); M25.572 Pain in left ankle and joints of left foot; W57.XXXA Bitten or stung by nonvenomous insect and other nonvenomous arthropods, initial encounter; Y93.89 Activity, other specified; Y92.89 Other specified places as the place of occurrence of the external cause; Y99.8 Other external cause status; Z87.891 Personal history of nicotine dependence; Z23 Encounter for immunization
CPT/HCPCS: 90471; 90715; 99283; 99284

== ENCOUNTER 2025-04-16 13:51 | Emergency (ER) | payer MEDICARE, MEDICAID, SELFPAY ==
--- NOTE | ~2025-04-16 | XR_ITS ---
EXAMINATION: XR LUMBOSACRAL SPINE CLINICAL INFORMATION: prior back surgery, low back pain COMPARISON: None available. Correlation made with MRI lumbar 06/30/2014. TECHNIQUE: Three views of the lumbosacral spine. FINDINGS: There is no scoliosis. There is a normal lordosis. There has been a discectomy with placement of 2 titanium disc cages at the L4-5 level. There is partial bony fusion of the disc space. No complication is evident. There is a 2 mm degenerative appearing retrolisthesis of L3 upon L4. Alignment in the sagittal plane is otherwise anatomic. No fracture, compression deformity, or suspicious bone lesion. Disc spaces appear mildly narrowed at L3-4, and L5-S1. They are otherwise normal. There is normal facet alignment. There is no significant facet arthrosis. The sacrum appears intact. SI joints appear normal. The paraspinal soft tissues appear normal. XR/XR lumbar spine 2-3V IMPRESSION: 1. No acute bony or soft tissue abnormalities. 2. Discectomy at L4-5 without complication evident. 3. Minimal degenerative spondylosis present. Electronically signed by: Natanael Carnes MD 04/16/2025 04:37 PM EST
[2025-04-16 14:25] VITALS: BP 107/80; PULSE 74; RESP 15; TEMP 36.1; O2SAT 98; BMI 28.1
[2025-04-16 16:14] VITALS: BP 123/71; PULSE 65; RESP 16; TEMP 36.8; O2SAT 98
[2025-04-16] MEDS: Lidocaine 4 % Patch ADH..PATCH 1 PATCH TRANSDERMA (16:38)
--- OUTSIDE RECORDS SUMMARY | 2025-04-16 16:46 | XMS_ITS | Encounter Summary ---
Author Organization [employer] Address [address] [place] [address] Care Team Providers Care Review Coordinator Name Role Phone Karli Hewitt DO Primary Care Provider Encounter Details Date Type Department Care Team (Late st Contact Info) Description 05/23/2022 Telephone [facility] [address] [place], [place] [phone] Karli Hewitt DO [address] [place] [address] Social History Tobacco Use Types Packs/Day Years Used Date Smoking Tobacco: Never Assessed Sex and Gender Information Value Date Recorded Sex Assigned at Male 04/09/2022 10:15 AM EDT Legal Sex Male 10:15 AM EDT Gender Identity Male 04/09/2022 10:15 AM EDT Sexual Orientation Straight 04/09/2022 10 :15 AM EDT COVID-19 Exposure Response Date Recorded In the last 10 days, have yo u been in contact with someone who was confirmed or suspected to have Coronavirus/COVID-19? No / Unsure 05/21/2022 4:10 PM EST documented as of this encounter Plan of Treatment Not on file documented as of this encounter Visit Diagnoses Not on filedocumented in this encounter Care Teams Review Coordinator Relationship Specialty Start Date End Date Karli Hewitt DO [address], [place] [phone] PCP - General Family Medicine 06/10/18 05/19/23 documented as of this encounter
--- OUTSIDE RECORDS SUMMARY | 2025-04-16 16:46 | XMS_ITS | Encounter Summary ---
Author Organization [employer] Address [address] [place] [address] Care Team Providers Care Communication Technician Name Role Phone Unavailable Primary Care Provider Unavailabl e Reason for Visit * Reason Comments Med Refill Encounter Details Date Type Department Care Team ([facility] st Contact Info) Description 11/17/2024 Refill [facility] [address] [place] [address] Lashonda Giles MD [address] [place] [address] Social History Tobacco Use Types Packs/Day Years Used Date Smoking Tobacco: Every Day Cigarettes Smokeless Tobacco: Never Alcohol Use Standard Drinks/Week Comments Never 0 (1 standard drink = 0.6 oz pur e alcohol) Housing Stability Answer Date Recorded What is your housing situation today? I have fredisjuan josé montaño 04/12/[address] you li ve. Do you have problems with any of the following? None of the above 04/12/2023 Food Insecurity Answer Date Recorded Within the past 12 months, y ou worried that your food would run out before you got money to buy more: Never True 04/12/2023 Within the past 12 months,th e food you bought just didn't last and you didn't have enough money to get more: Never True 08/2022 Transportation Answer Date Recorded In the past 12 months, has l ack of transportation kept you from medical appts, meetings, work or from getting things needed for daily living? Yes, it has kept me from medical appointments or getting medications. 03/17/2023 Utilities Answer Date Recorded In the past 12 months, has t he electric, gas, oil or water company threatened to shut off services in your home? No 04/12/2023 Depression Answer Date Recorded Patient Health Questionnaire-2 Score 0 08/08/2022 Sex and Gender Information Value Date Recorded Sex Assigned at Male 04/09/2022 10:15 AM EDT Legal Sex Male 10:15 AM EDT Gender Identity Male 04/09/2022 10:15 AM EDT Sexual Orientation Straight 04/09/2022 10 :15 AM EDT documented as of this encounter Plan of Treatment Not on file documented as of this encounter Visit Diagnoses Not on filedocumented in this encounter
--- OUTSIDE RECORDS SUMMARY | 2025-04-16 16:46 | XMS_ITS | Clinical Summary ---
Author Organization [facility] Address [address] [address] Phone Care Team Providers Care Finishing Room Supervisor Name Role Phone Pcp, Unknown Primary Care Provider Unavailabl e Allergies No known active allergies Medications No known medications Active Problems No known active problems Social History Tobacco Use Types Packs/Day Years Used Date Smoking Tobacco: Never Assessed Education Answer Date Recorded Are you interested in more education? Not on fatoumata e 01/07/2024 Are you concerned about learning? Not on file 01/07/2024 No 01/07/2024 No 01/07/2024 Digital Access Answer Date Recorded No 01/07/2024 No 01/07/2024 Reliable internet access at home? Not on file 01/07/2024 Device with a working camera? Not on file Sex and Gender Information Value Date Recorded Sex Assigned at Not on file Legal Sex Male 10:20 AM EDT Gender Identity Not on file Sexual Orientation Not on file Last Filed Vital Signs Vital Sign Reading Time Taken Comments Blood Pressure 119/78 01/07/2024 10:27 AM EDT Pulse 88 01/07/2024 10:27 AM EDT Temperature 36.7 C (98.1 F) 01/07/2024 10:27 AM EDT Respiratory Rate 18 01/07/2024 10:27 AM EDT Oxygen Saturation 99% 01/07/2024 10:27 AM EDT Inhaled Oxygen Concentration - - Weight - - Height - - Body Mass Index - - Plan of Treatment Health Maintenance Due Date Last Done Comments LIPID PANEL 1986 DEPRESSION SCREENING 1998 SMOKING Hx and SMOKELESS TOBACCO SCREENING 1999 HEPATITIS C SCREENING 2004 HIV ONE-TIME SCREENING (18-65 YEARS) 2004 Adult Td,Tdap Booster 04/20/2020 04/20/2010, 999 INFLUENZA VACCINE (#1) 2025 7, 05/27/2015, 03/16/2013, Additional history exists COVID-19 VACCINE (2024- season) 2025 08/30/2022, 06/27/2021, 05/25/2021 PNEUMOCOCCAL VACCINES (0-49 years) Aged Out 04/20/2010 No longer eligible based on patient's age to complete this topic HEPATITIS A VACCINES Aged Out No long er eligible based on patient's age to complete this topic HIB VACCINES Aged Out No longer eligi ble based on patient's age to complete this topic MENINGOCOCCAL VACCINES (ACWY) Aged Out No longer eligible based on patient's age to complete this topic MENINGOCOCCAL VACCINES (B) Aged Out N o longer eligible based on patient's age to complete this topic Medical Devices Not on file Insurance [facility] & B [place] MED[place] PART A & B [facility] MEDICARE PART A & [place] & B [facility] MEDICARE PART A & B Care Teams Finishing Room Supervisor Relationship Specialty Start Date End Date Pcp, Unknown PCP - General 01/07/24 Additional Source Comments The information contained in this document represents components of the legal health record. It is not the complete legal health record.[facility]
--- OUTSIDE RECORDS SUMMARY | 2025-04-16 16:47 | XMS_ITS | Clinical Summary ---
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 Active baclofen (Lioresal) 10 MG tablet TAKE 1 TABLET BY MOUTH THREE TIMES DAILY NEEDED FOR MUSCLE SPASMS AND FOR PAIN Active Suboxone 12-3 MG per sublingual film DISSOLVE 1 FILM UNDER THE TONGUE EVERY DAY Active cetirizine (ZyrTEC) 10 MG tablet Take 1 tablet by mouth at bed time. Active fluticasone (Flonase Allergy Relief) 50 MCG/ACT nasal spray Administer 2 sprays into affected nostril(s) at bed time. Active OLANZapine (ZyPREXA) 2.5 MG tablet Take 1 tablet by mouth in the morning. Active PARoxetine (Paxil) 20 MG tablet Take 20 mg by mouth in the morning. Active Skin Protectants, Misc. (eucerin) cream apply topically to dry skin twice a day as needed Active omeprazole OTC (PriLOSEC OTC) 20 MG EC tabletIndicatio ns:Gastroesopha geal reflux disease without esophagitis Take 1 tablet (20 mg) by mouth before breakfast. Do not crush, chew, or split. 90 tablet 3 023 Active acetaminophen (Tylenol) 500 MG tabletIndicatio ns:Status post lumbar spinal fusion Take 1 tablet (500 mg) by mouth every 8 (eight) hours if needed for fever or mild pain. 60 tablet 2 023 Active albuterol (2.5 MG/3ML) 0.083% nebulizer solutionIndicat ions:Mild persistent asthma with exacerbation Take 3 mL (2.5 mg) by nebulization every 6 (six) hours if needed for wheezing. 75 mL 11 025 2025 Active albuterol 108 (90 Base) MCG/ACT inhalerIndicati ons:Mild intermittent asthma without complication Inhale 2 puffs every 6 (six) hours if needed for wheezing or shortness of breath. 18 g 3 025 2025 Active fluticasone furoate (Arnuity Ellipta) 200 MCG/ACT inhalerIndicati ons:Mild intermittent asthma without complication INHALE 1 PUFF BY MOUTH EVERY DAY AT THE SAME TIME RINSE MOUTH AFTER USING 1 each 3 025 Active albuterol (Ventolin HFA) 108 (90 Base) MCG/ACT inhalerIndicati ons:Mild intermittent asthma without complication inhale 2 puff by inhalation route every 4 - 6 hours as needed as needed for COUGH, WHEEZE, SOB 18 g 3 023 2024 Discontinued albuterol 108 (90 Base) MCG/ACT inhaler Inhale 2 puffs every 4 (four) hours if needed for wheezing. 18 g 025 2024 Discontinued(R eorder (will not trigger notification to Pharmacy)) fluticasone furoate (Arnuity Ellipta) 200 MCG/ACT inhaler INHALE 1 PUFF BY MOUTH EVERY DAY AT THE SAME TIME RINSE MOUTH AFTER USING 1 each 3 025 2024 Discontinued(R eorder (will not trigger notification to Pharmacy)) amoxicillin (Amoxil) 500 MG capsuleIndicati ons:Strep pharyngitis Take 1 capsule (500 mg) by mouth every 12 (twelve) hours for 10 days. 20 capsule 025 2024 Active Problems Problem Noted Date Diagnosed Date Onychomycosis 08/08/2022 Cannabis dependence 03/01/2017 Chronic low back pain 03/01/2017 Assessment & Plan (08/08/2022 3:43 PM EST): Patient s/p lumbar fusion 2014 Last seen by ortho 2016 Will obtain MRI w/wo contrast and refer to [facility] neurosurgery afterwards Baclofen, acetaminophen, ice, heat, lidocaine patches, suboxone split dosing recommended for pain, as well as gentle stretching as tolerated Patient has allergy to NSAIDS Gastroesophageal reflux disease 03/01/2017 Assessment & Plan (08/08/2022 3:43 PM EST): Uncontrolled currently Prilosec 20mg daily ordered Mild persistent asthma without complication 02/09 Assessment & Plan (08/08/2022 3:43 PM EST): Prn ANEL Recurrent major depression 03/01/2017 Schizoaffective disorder, bipolar type ([facility]) 03/01/2017 Encounters Date Type Department Care Team Description 03/18/2025 9:40 AM EDT Office Visit [facility] [address] [place] [address] Dane Dietrich MD Strep pharyngitis; Mild intermittent asthma without complication 03/18/2025 Travel from Last 3 Months Immunizations Immunization Administration Dates Next Due DTaP, 5 pertussis antigens 01/08/1997,,11/08/1988,1986,1986 Hep B, Adolescent or Pediatric 08/29/2000,1999,02/23/2000 IPV 02/08/1991, 9,1986,1986 Influenza injectable quadriv alent IIV4 with preservative 03/01/2017 Influenza injectable quadriv alent preservative free 06/13/2018,05/27/2015 Influenza, Split (incl. [place] antigen) 03/16/2013,07/14/2012 MMR 02/23/2000,11/08/1988 Moderna Covid-19 Vaccine 6+ Bivalent 08/30/2022 Pneumococcal Conjugate PCV 13 04/20/2010 TD (adult), 2 Lf tetanus tox oid, preservative free, adsorbed 10/27/1998 Tdap 04/20/2010 Social History Tobacco Use Types Packs/Day Years Used Date Smoking Tobacco: Every Day Cigarettes Smokeless Tobacco: Never Tobacco Cessation:Ready to Q uit: Not Asked; Counseling Given: Not Answered Alcohol Use Standard Drinks/Week Comments Never 0 (1 standard drink = 0.6 oz pur e alcohol) Housing Stability Answer Date Recorded What is your housing situation today? I have fredis montaño 04/12/[address] you [...] Orientation Straight 04/09/2022 10 :15 AM EDT Last Filed Vital Signs Vital Sign Reading Time Taken Comments Blood Pressure 150/84 03/18/2025 9:58 AM EDT Pulse 99 03/18/2025 9:58 AM EDT Temperature 37.4 C (99.3 F) 03/18/2025 9:58 AM EDT Respiratory Rate 20 03/18/2025 9:58 AM EDT Oxygen Saturation 97% 03/18/2025 9:58 AM EDT Inhaled Oxygen Concentration - - Weight 81.6 kg (180 lb) 03/18/2025 9:58 AM EDT Height 175.3 cm (5' 9 ) 08/08/2022 3:16 PM EST Body Mass Index 26.58 08/08/2022 3:16 PM EST Plan of Treatment Health Maintenance Due Date Last Done Comments Dental Prophylaxis 1986 HIV Screening 1986 Lipid Panel 1986 Disability Screening 1986 Alcohol/Substance Use Screening 1998 Family Planning (PISQ) 2001 HPV Vaccines (1 - Male 3-dose series) 2001 Hepatitis C Screening 2004 Pneumococcal Vaccine: Pediatrics (0 to 5 Years) and At-Risk Patients (6 to 49) Years (2 of 2 - PPSV23) 06/15/2010 04/20/2010 Dental Oral Exam 02/21/2023 08/20/2022 Depression Screening 08/09/2023 08/08/2022, 08/09/19 SDOH Screening 08/09/2023 08/08/2022 Dental X-Ray: Bitewings 08/22/2023 08/20/2022 COVID-19 Vaccine ( season) 2025 08/30/2022, 06/27/2021, 05/25/2021 Influenza Vaccine (#1) 2025 9, 03/01/2017, 05/27/2015, Additional history exists Dental X-Ray: Full Mouth 08/21/2025 08/20/2022 Tobacco Screening 03/18/2026 03/18/2025 DTaP/Tdap/Td Vaccines (9 - Td or Tdap) 01/06/2034 01/07/2024, 04/20/2010, 10/27/1998, Additional history exists Zoster Vaccines (1 of 2) 2036 RSV Patients and Patients Aged 60 years or older (1 - 1-dose 75+ series) 2061 IPV Vaccines Completed 02/08/1991, 0606/1988, 1986, Additional history exists Hepatitis B Vaccines Completed 08/29/2000, 04/17/2000, 02/23/2000 HIB Vaccines Aged Out No longer eligi ble based on patient's age to complete this topic Hepatitis A Vaccines Aged Out No long er eligible based on patient's age to complete this topic Meningococcal B Vaccine Aged Out No l onger eligible based on patient's age to complete this topic Meningococcal Vaccine Aged Out No modesta kenroy eligible based on patient's age to complete this topic RSV under 20 months Aged Out No longe r eligible based on patient's age to complete this topic Rotavirus Vaccines Aged Out No longer eligible based on patient's age to complete this topic Procedures Procedure Name Priority Date/Time Associated Diagnosis Comments POCT INFLUENZA A (ID NOW RAPID MOLECULAR) Routine 03/18/2025 10:13 AM EDT Strep pharyngitis POCT INFLUENZA B (ID NOW RAPID MOLECULAR) Routine 03/18/2025 10:12 AM EDT Strep pharyngitis POCT RAPID STREP A Routine 03/18/2025 10 :02 AM EDT Strep pharyngitis POCT RAPID COVID ANTIGEN Routine 03/18/2025 10:02 AM EDT Strep pharyngitis INTRAORAL - COMPLETE SERIES OF RADIOGRAPHIC IMAGES Routine 08/20/2022 3:00 PM EDT Dental caries Encounter for dental examination Fracture of multiple teeth Gum disease COMPREHENSIVE ORAL EVALUATION - NEW OR ESTABLISHED PATIENT Routine 08/20/2022 3:00 PM EDT Dental caries Encounter for dental examination Fracture of multiple teeth Gum disease from Last 3 Months or Most Recently Relevant to Health Maintenance Results * Influenza A (ID NOW Rapid Molecular) (03/18/2025 10:13 AM EDT) Influenza A Negative Negative, Indeterminate [facility] Swab 03/18/2025 10:1 3 AM EDT Dane Dietrich MD POINT OF CARE TEST ENTER/EDIT OR DERABLES Final Result [facility] [address] [place] [phone] * Influenza B (ID NOW Rapid Molecular) (03/18/2025 10:12 AM EDT) Influenza B Negative Negative, Indeterminate [facility] Swab 03/18/2025 10:1 2 AM EDT Dane Dietrich MD POINT OF CARE TEST ENTER/EDIT OR DERABLES Final Result [facility] [address] [place] [phone] * POCT Rapid COVID Ag (03/18/2025 10:02 AM EDT) [facility] Rapid COVID Ag Negative Swab 03/18/2025 10:0 2 AM EDT Dane Dietrich MD POINT OF CARE TEST ENTER/EDIT OR DERABLES Final Result * (ABNORMAL) POCT rapid strep A manually resulted (03/18/2025 10:02 AM EDT) [facility] Rapid Strep A Screen Positive( A) Negative, None Detected Swab 03/18/2025 10:0 2 AM EDT us Dane Dietrich MD POINT OF CARE TEST ENTER/EDIT OR DERABLES Final Result from Last 3 [place] [id number] [facility] STANDARD DENTAL-[facility] MEDICAID STAND ADULT
--- NOTE | 2025-04-16 16:49 | ED.BACK ---
HPI - Back Pain/Injury General Chief Complaint: Back Pain/Injury Stated Complaint: Back Pain Time Seen by Provider: 04/16/25 15:51 Source: patient and old records reviewed Mode of arrival: ambulatory Limitations: no limitations History of Present Illness ED Provider: FLORENCIA HERNANDEZ Narrative: 39-year-old male with past medical history of prior L5 diskectomy several years ago, he denies any blood thinner use, he denies IVDA, he denies any new trauma. He has no bowel or bladder incontinence, he has no saddle anesthesia. He started with left low back pain radiating to the left leg feels sharp shooting pain and spasms. He noted this yesterday. He has taken Tylenol without relief. He does have history of prior opiate abuse but denies any use other than his Suboxone and has been doing well in his recovery. He asked for no narcotics at this time. He has not had issues with his back in a long time MD elicited complaint: back pain Pertinent past history: prior back pain and back surgery Onset (ago): day(s) (One) Timing: constant Severity: severe Quality: sharp and throbbing Location: lumbar spine Radiation: left leg below the knee Exacerbating factors: movement Relieving factors: none Context: unknown Associated symptoms: denies other symptoms Work related injury: No Related Data Previous Rx's ?Medication ?Instructions ?Recorded amoxicillin 875 mg-potassium 1 tab PO Q12H 10 days #20 tabs 10/03/21 clavulanate 125 mg tablet amoxicillin 875 mg-potassium 1 tab PO BID #20 tabs 03/29/22 clavulanate 125 mg tablet cyclobenzaprine 10 mg tablet 10 mg PO TID PRN muscle spasm #20 04/16/25 tabs lidocaine 5 % topical patch 1 patch topical DAILY #30 ea 04/16/25 prednisone 20 mg tablet 40 mg (2 x 20 mg) PO DAILY 4 days 04/16/25 #8 tabs Allergies Allergy/AdvReac Type Severity Reaction Status Date / Time vancomycin (Vancomycin) Allergy Mild FLUSHING, Verified 04/16/25 14:29 RED FACE, anaphylaxis ibuprofen Allergy Unknown LIP Verified 04/16/25 14:29 SWELLING Motrin Allergy Unknown Unknown Uncoded 01/07/24 11:09 Review of Systems Review of Systems: Constitutional : No Weight loss, No Fever, No Chills, ENT/Mouth : No Hearing loss, No Ear Pain, No Nasal Congestion, No Sinus Pain, No Hoarseness, No sore throat, No Rhinorrhea, No Swallowing Difficulty Cardiovascular : No Chest Pain, No SOB Respiratory : No Cough, No Dyspnea Gastrointestinal : No Nausea, No Vomiting, No Diarrhea, No abdominal Pain, No Hematochezia, No Melena Genitourinary : No Dysuria, No Urinary Frequency, No Hematuria, No Urinary Incontinence, Musculoskeletal : positive back pain Skin : No Skin Lesions, No rash Neuro : No Weakness, No Numbness, No Paresthesias, no loss of bowel or bladder incontinence, no saddle anesthesia Yes all other systems are reviewed and are negative [facility] [place] Past Medical History Attestation statement: The following information was validated with the patient. Source: old records reviewed Medical History Panic attacks Social History Social History Patient Tobacco Use Status: Former Tobacco user Substance Use Type: Crack/Cocaine and Marijuana Advance Directives: No Advance Directives Information Provided: No Physical Exam Vital Signs: Vital Signs: Last Vital Signs Temp 98.3 F 04/16/25 18:27 Pulse 66 04/16/25 18:27 Resp 15 04/16/25 18:27 BP 110/75 04/16/25 18:27 Pulse Ox 98 04/16/25 18:27 O2 Del Method Room Air 04/16/25 18:27 BMI result Body Mass Index 28.1 Appearance: Alert. Oriented X3. No acute distress. Eyes: Pupils equal, round and reactive to light. ENT: Pharynx normal. Neck: Normal inspection. Neck supple. CVS: Normal heart rate and rhythm. Pulses normal. Respiratory: No respiratory distress. Breath sounds normal. Abdomen: Soft and nontender. Back: Tenderness to palpation on left lower lumbar spine but no midline tenderness Skin: Skin warm and dry. Normal skin color. Normal skin turgor. Extremities: No lower extremity edema. No calf ttp Neuro: Oriented X 3. No motor deficit. No sensory deficit. CN2-12 intact L5 5/5 bilaterally, silt intact lower extremity, 2+ DTR in patella and Achilles testing, no clonus Medications Administered Discontinued Medications Generic Name Dose Route Start Last Admin Trade Name Freq PRN Reason Stop Dose Admin Cyclobenzaprine HCl 10 mg 04/16/25 16:19 04/16/25 16:38 Cyclobenzaprine Hcl 10 Mg Tablet PO 04/16/25 16:20 10 mg ONCE ONE Administration Lidocaine 1 patch 04/16/25 16:19 04/16/25 16:38 Lidocaine 4 % Patch Adh..Patch TRANSDERMA 04/16/25 16:20 1 patch ONCE ONE Administration Protocol Prednisone 60 mg 04/16/25 16:19 04/16/25 16:38 Prednisone 20 Mg Tablet PO 04/16/25 16:20 60 mg ONCE ONE Administration Medical Decision Making Medical Decision Making MDM Narrative: 39-year-old male with past medical history of prior L5 diskectomy several years ago, he denies any blood thinner use, he denies IVDA at this time he has no cauda equina symptoms. He will get an x-ray to evaluate his hardware. He will be started on prednisone, Flexeril, lidocaine patch. Adamantly denies any IVDA and has no fevers I do not suspect any epidural abscess, diskitis, osteomyelitis Differential Diagnosis Differential Diagnoses: The differential diagnosis associated with the presentation includes Back strain, back spasm, lumbar radiculopathy Admission/Observation Consideration of admission/observation: Escalation of care including admission/observation considered He has no signs of cauda equina will be managed with lidocaine patches, Flexeril, prednisone He is feeling much better Independent Interpretation I performed an independent interpretation of an: Plain X-Ray (No acute issues or fracture) Radiology Impression Discussion of test interpretation with radiology: I have reviewed the radiologist's reading. External Record Review External record reviewed: Outpatient record Prescription Management I considered prescription management with: Pain Medication and Other Discharge Plan Discharge Clinical Impression: Lumbar radiculopathy Patient Disposition: Home, Self-Care Instructions: Acute Low Back Pain (ED), Lumbar Radiculopathy (ED) Additional Instructions: At this time return for any worsening symptoms or pain Return for loss of control of bowel or bladder, numbness in your genital area, inability to urinate There are no new findings on your x-ray XR/XR lumbar spine 2-3V Take all medications with food IMPRESSION: 1. No acute bony or soft tissue abnormalities. 2. Discectomy at L4-5 without complication evident. 3. Minimal degenerative spondylosis present. Prescriptions: New cyclobenzaprine 10 mg tablet 10 mg PO TID PRN (Reason: muscle spasm) Qty: 20 0RF prednisone 20 mg tablet 40 mg PO DAILY 4 Days Qty: 8 0RF lidocaine 5 % adhesive patch,medicated 1 patch topical DAILY Qty: 30 0RF Rx Instructions: leave on most painful area for up to 12 hrs No Action amoxicillin-pot clavulanate 875-125 mg tablet 1 tab PO Q12H 10 Days Qty: 20 0RF amoxicillin-pot clavulanate 875-125 mg tablet 1 tab PO BID Qty: 20 0RF Print Language: [place]an
[2025-04-16 18:27] VITALS: BP 110/75; PULSE 66; RESP 15; TEMP 36.8; O2SAT 98
[2025-04-16 19:00] VITALS: BP 110/75; PULSE 66; RESP 15; TEMP 36.8; O2SAT 98
== END 2025-04-16 19:01 | disposition home or self-care (01) ==
PROVIDERS: Emergency Provider Emergency Medicine
DX: M54.16 Radiculopathy, lumbar region (principal); Z87.891 Personal history of nicotine dependence
CPT/HCPCS: 72100; 99284

== ENCOUNTER → 2025-04-16 16:19 | Outpatient (BNV) | payer MEDICARE, MEDICAID, SELFPAY | PROVIDERS: Emergency Provider Emergency Medicine; Visit Provider Radiology Diagnostic Radiology | DX: M54.50 Low back pain, unspecified (principal); Z98.890 Other specified postprocedural states | CPT/HCPCS: 72100 ==